=== PATIENT | female | born 1990 | race Two or more races ===

== ENCOUNTER 2016-10-27 15:27 | Emergency (ER) | payer SELFPAY ==
[~2016-10-27] VITALS: Ht 165.1 cm; Wt 90.0 kg
[2016-10-27] MEDS ORDERED: ONDANSETRON HCL 4MG/2ML VIAL IV STA ×3 (20:07→23:18)
[2016-10-27] MEDS ORDERED: MORPHINE SULFATE 4 MG/ML CPJ (NOT FOR IM USE) IV STA ×3 (20:07→23:18)
[2016-10-27] MEDS ORDERED: SODIUM CHLORIDE 0.9% 1,000 ML IV ONE (20:07)
[2016-10-27 20:33] LABS: HEMATOCRIT. 46.2 % (36.0-48.0); HEMOGLOBIN. 15.8 g/dL (12.0-16.0); MEAN CORPUSCULAR HEMOGLOBIN 29.2 pg (28.0-32.0); MEAN CORPUSCULAR VOLUME 85.5 fL (81.0-99.0); MEAN PLATELET VOLUME 8.7 fl (7.4-10.4); PLATELET 352 x1000/uL (130-400); RED CELL DISTRIBUTION WIDTH 13.8 % (11.6-14.6)
[2016-10-27 20:37] LABS: CHLORIDE 104 mEq/L (98-107)
[2016-10-27 20:39] LABS: PROTHROMBIN TIME 10.8 sec
[2016-10-27 20:45] LABS: CARBON DIOXIDE 23 mEq/L (21-32)
[2016-10-27 20:59] LABS: PLATELET ESTIMATE NORMAL
[2016-10-27 23:00] LABS: CLARITY URINE CLOUDY (CLEAR); COLOR URINE RED (YELLOW); GLUCOSE URINE NEGATIVE (NEGATIVE); KETONES URINE 3+ (NEGATIVE); LEUKOCYTE ESTERASE URINE 1+ (NEGATIVE); NITRITE URINE NEGATIVE (NEGATIVE); OCCULT BLOOD URINE 3+ (NEGATIVE); PH URINE 7.5 (4.5-8.0); PROTEIN URINE 2+ (NEGATIVE); UROBILINOGEN URINE 0.2 E.U./dL (0.2-1.0)
[2016-10-28 02:00] VITALS: BP 128/84
[2016-10-28] MEDS ORDERED: SODIUM CHLORIDE 0.9% 10ML VIAL ONE (13:13)
[2016-10-28] MEDS ORDERED: IOHEXOL-300 100 ML BOTTLE ONE (13:13)
[2016-10-31] MEDS ORDERED: ONDA4TAB21 PO (02:08)
[2016-10-31] MEDS ORDERED: NITR100C2 PO (02:08)
[2016-10-31] MEDS ORDERED: LOPE2TAB26 PO (02:08)
== END 2016-10-28 02:23 | disposition home or self-care (01) ==
LOC: ER 15:49 → EDBD 15:49 → ER 10-28 02:23
DX: A08.4 Viral intestinal infection, unspecified (principal); N39.0 Urinary tract infection, site not specified
CPT/HCPCS: 36415; 74177; 80053; 81001; 81025; 83690; 85025; 85610; 96361; 96374; 96375; 96376; 99285; A4216; J2270; J2405; J7030; Q9967; Z7610

== ENCOUNTER 2018-05-30 22:28 | Emergency (ER) | payer SELFPAY ==
[~2018-05-30] VITALS: Ht 170.2 cm; Wt 88.0 kg
[~2018-05-30 22:28] MED LIST: LOPE2TAB26 PO; NITR100C PO; ONDA4TAB21 PO
[2018-05-31] MEDS ORDERED: ONDANSETRON HCL 4MG/2ML INJ IV ONE (06:45)
[2018-05-31] MEDS ORDERED: FAMOTIDINE 20MG/2ML VIAL IV ONE (06:45)
[2018-05-31 06:55] LABS: CLARITY URINE CLOUDY (CLEAR); COLOR URINE YELLOW (YELLOW); KETONES URINE 2+ (NEGATIVE); LEUKOCYTE ESTERASE URINE NEGATIVE (NEGATIVE); NITRITE URINE NEGATIVE (NEGATIVE); OCCULT BLOOD URINE TRACE (NEGATIVE); PH URINE 6.5 (4.5-8.0); PROTEIN URINE 2+ (NEGATIVE); SPECIFIC GRAVITY URINE 1.052 (1.005-1.030); UROBILINOGEN URINE 0.2 E.U./dL (0.2-1.0)
[2018-05-31 07:35] LABS: HEMATOCRIT. 43.2 % (36.0-48.0); HEMOGLOBIN. 14.3 g/dL (12.0-16.0); MEAN CORPUSCULAR VOLUME 87.3 fL (81.0-99.0); PLATELET 396 x1000/uL (130-400); RED BLOOD CELL COUNT 4.94 mill/uL (4.2-5.4); RED CELL DISTRIBUTION WIDTH 14.8 % (11.6-14.6)
[2018-05-31 07:38] LABS: CHLORIDE 107 mEq/L (98-107)
[2018-05-31 08:04] LABS: PLATELET ESTIMATE NORMAL
[2018-05-31] MEDS ORDERED: IOHEXOL-300 100 ML BOTTLE ONE (09:54)
[2018-05-31 10:00] VITALS: BP 111/64
== END 2018-05-31 10:00 | disposition home or self-care (01) ==
LOC: ER 22:33
DX: R10.13 Epigastric pain (principal); D72.829 Elevated white blood cell count, unspecified; F12.10 Cannabis abuse, uncomplicated; Z90.49 Acquired absence of other specified parts of digestive tract
CPT/HCPCS: 36415; 71045; 74177; 80053; 81003; 81025; 83690; 85025; 87086; 96374; 96375; 99284; J2405; J3490; Q9967; Z7610

== ENCOUNTER 2019-08-13 18:09 | Emergency (ER) | payer SELFPAY ==
[~2019-08-13] VITALS: Ht 170.2 cm; Wt 90.0 kg
[2019-08-13] MEDS ORDERED: ONDANSETRON 4MG ODT PO STA (18:44)
[2019-08-13] MEDS ORDERED: ACETAMINOPHEN 325MG TABLET PO STA (18:44)
[2019-08-13 19:15] LABS: HEMOGLOBIN. 14.8 g/dL (12.0-16.0); MEAN CORPUSCULAR HEMOGLOBIN 28.8 pg (28.0-32.0); MEAN CORPUSCULAR VOLUME 85.6 fL (81.0-99.0); MEAN PLATELET VOLUME 8.6 fl (7.4-10.4); PLATELET 385 x1000/uL (130-400); RED BLOOD CELL COUNT 5.13 mill/uL (4.2-5.4); RED CELL DISTRIBUTION WIDTH 14.6 % (11.6-14.6)
[2019-08-13 19:22] LABS: CHLORIDE 110 mEq/L (98-107)
[2019-08-13 19:25] LABS: ETHANOL BLOOD < 10 mg/dL
[2019-08-13 20:56] LABS: CLARITY URINE CLOUDY (CLEAR); COLOR URINE DARK YELLOW (YELLOW); KETONES URINE 4+ (NEGATIVE); LEUKOCYTE ESTERASE URINE TRACE (NEGATIVE); NITRITE URINE NEGATIVE (NEGATIVE); OCCULT BLOOD URINE NEGATIVE (NEGATIVE); PH URINE 5.5 (4.5-8.0); PROTEIN URINE 1+ (NEGATIVE); SPECIFIC GRAVITY URINE 1.037 (1.005-1.030)
[2019-08-13 21:02] LABS: HCG SCREEN NEGATIVE
[2019-08-13 21:06] LABS: PLATELET ESTIMATE NORMAL
[2019-08-13 21:24] LABS: *AMPHETAMINES SCREEN URINE NEGATIVE (NEGATIVE); *BARBITURATES SCREEN URINE NEGATIVE (NEGATIVE); *BENZODIAZEPINES SCREEN URINE NEGATIVE (NEGATIVE); *COCAINE SCREEN URINE NEGATIVE (NEGATIVE); METHADONE URINE SCREEN NEGATIVE (NEGATIVE); OPIATES URINE SCREEN NEGATIVE (NEGATIVE)
[2019-08-13 21:25] LABS: PHENCYCLIDINE URINE SCREEN NEGATIVE (NEGATIVE)
[2019-08-13 21:26] LABS: CANNABINOID URINE SCREEN PRESUMTIVE POSITIVE (NEGATIVE)
[2019-08-13] MEDS ORDERED: NITROFURANTOIN 100MG M/M CAPSULE PO ONE (21:45)
[2019-08-13] MEDS ORDERED: KETOROLAC 60MG/2ML VIAL IM ONE (21:45)
[2019-08-13 22:23] VITALS: BP 128/71
== END 2019-08-13 22:27 | disposition home or self-care (01) ==
LOC: ER 18:09
DX: N30.00 Acute cystitis without hematuria (principal); F12.10 Cannabis abuse, uncomplicated; Z90.49 Acquired absence of other specified parts of digestive tract; Z90.89 Acquired absence of other organs; Z98.890 Other specified postprocedural states; Z79.899 Other long term (current) drug therapy
CPT/HCPCS: 36415; 74176; 80053; 80305; 80320; 81003; 81025; 83690; 84703; 85025; 96372; 99284; J1885; Q0162; G0480